=== PATIENT | female | born 1930 | race Caucasian/White ===

== ENCOUNTER 2016-11-28 13:48 | Inpatient (IN) | payer MEDICARE, OTHER ==
--- NOTE | ~2016-11-28 | CN ---
Consultation Report [facility] [address] [place]. [address] NAME: JOHN DOE : 31 STATUS : ADM IN PAT#: [id number] AGE: 86 ADM/REG DATE : 11/28/16 MR#: [id number] REPORT SERV DATE: 11/29/16 DICTATED BY: WANG AGUILAR DATE: 11/29/16 REPORT STATUS : Draft TRANSCRIBED BY: MODL DATE: 11/29/16 CONSULTATION DATE OF CONSULTATION: 11/29/2016 CHIEF COMPLAINT: Left hip pain. HISTORY OF PRESENT ILLNESS: Ms Doe is an 86-year-old female, who fell yesterday landing on her left side. She had immediate onset of severe left hip pain, was unable to ambulate after the fall. She presented to [facility] where x-rays showed a slightly valgus impacted left femoral neck fracture. Now, I have been asked to see her for evaluation and treatment. On questioning, she complains of only left hip pain. She denies any mental status changes or loss of consciousness at the time of the fall. She has had multiple recent falls. PHYSICAL EXAMINATION: GENERAL: She is awake and alert. She has no cervical tenderness. There is no evidence of bony injury to either upper extremity or right lower extremity. She has no pain with AP or lateral compression of her pelvis. With regard to her left lower extremity, there is no significant shortening or rotational deformity. She is unable to actively straight leg raise due to pain. She cannot tolerate passive left hip range of motion secondary to pain. There is moderate amount of trochanteric tenderness. She has no tenderness in the mid thigh distally. She has weakly present, but palpable pedal pulses and normal sciatic nerve function on the left. DIAGNOSTIC STUDIES: X-rays of her left hip show a valgus impacted left femoral neck fracture. IMPRESSION: Valgus impacted left femoral neck fracture. I have discussed treatment options with Ms Doe and her family including nonoperative treatment versus open reduction and internal fixation versus hemiarthroplasty, given that she has a stable pattern valgus impacted fracture. I have recommended open reduction and internal fixation. Risks of the procedure were discussed including infection, neurovascular damage, DVT, PE, blood loss, nonunion, malunion, loss of fixation, possible future need for removal of hardware, conversion to total hip arthroplasty, anesthetic complications, and others. She and her family have a good understanding, and have requested to proceed with surgical scheduling. VIRGIE/ROBYN Wang Consultation Report [facility] [address] [place]. [address] NAME: JOHN DOE : 31 STATUS : ADM IN PAT#: [id number] AGE: 86 ADM/REG DATE : 11/28/16 MR#: [id number] REPORT SERV DATE: 11/29/16 DICTATED BY: WANG AGUILAR DATE: 11/29/16 REPORT STATUS : Draft TRANSCRIBED BY: ROBYN DATE: 11/29/16 Malachi Aguilar / [id number] CC: Malachi Velazquez M.D.
--- NOTE | ~2016-11-28 | OP ---
Record Of Operation [facility] [address] [place]. [address] NAME: JOHN DOE : 31 STATUS : ADM IN PAT#: [id number] AGE: 86 ADM/REG DATE : 11/28/16 MR#: [id number] REPORT SERV DATE: 11/29/16 DICTATED BY: WANG AGUILAR DATE: 11/29/16 REPORT STATUS : Draft TRANSCRIBED BY: MODL DATE: 11/29/16 DATE OF PROCEDURE: 11/29/2016 PREOPERATIVE DIAGNOSIS: Valgus impacted left femoral neck fracture. POSTOPERATIVE DIAGNOSIS: Valgus impacted left femoral neck fracture. PROCEDURE: Open reduction and internal fixation of the left femoral neck fracture. SURGEON: Wang Aguilar M.D. BLADDER CHANGER: Curt Mejia. ANESTHESIA: Spinal with MAC. ESTIMATED BLOOD LOSS: 25 mL. COMPLICATIONS: None. DRAINS: None. IMPLANTS: Synthes 7.3 mm cannulated screws. INDICATIONS FOR SURGERY: Ms Doe is an 86-year-old female, who sustained the above- mentioned fracture in a fall. It was recommended she undergo open reduction and internal fixation. Risks of the procedure as detailed in the orthopedic consult, and operative consent were discussed prior to proceeding with her and her family. Her family fully understood and has requested to proceed. DESCRIPTION OF PROCEDURE: The patient was brought to the operating room, and after adequate induction of general anesthesia, positioned on the Chick fracture table in the supine position. All appropriate pressure points were padded. The left lower extremity was placed in gentle traction. The right hip was flexed and abducted to facilitate radiography. The maintenance of the valgus impacted position of the fracture was confirmed using biplanar fluoroscopy. The left hip was then prepped and draped in the usual sterile fashion. A time out was performed confirming the appropriate surgical side and site. A 2.5 cm incision was made over the lateral aspect of the femur. The subcutaneous tissues were incised sharply, and electrocautery was used, it was needed to maintain hemostasis. The fascia was divided in line with the incision. Three 3.2 mm guidewires for the cannulated screws were placed, one central inferior, one superior anterior, and one superior posterior in parallel fashion. Once appropriate guidewire placement had been confirmed, they were over measured and replaced with 7.3 mm cannulated screws. All three screws had excellent purchase. The screws were finally tightened and then the final fluoroscopic images were obtained and saved in both planes. The pins were removed. The wound was copiously irrigated with normal saline. The fascia was closed with interrupted #1 Vicryl suture in [id number] fashion. The subcutaneous tissues were approximated with interrupted 2-0 Vicryl suture. Steri-Strips Record Of Operation [address] [place]. [address] NAME: JOHN DOE : 31 STATUS : ADM IN PAT#: [id number] AGE: 86 ADM/REG DATE : 11/28/16 MR#: [id number] REPORT SERV DATE: 11/29/16 DICTATED BY: WANG AGUILAR DATE: 11/29/16 REPORT STATUS : Draft TRANSCRIBED BY: ROBYN DATE: 11/29/16 were applied. A sterile dressing was applied. The patient was awakened, and taken to the recovery room in stable condition. POSTOP PLAN: She is to be mobilized. Strict touchdown weightbearing only on her left lower extremity. She will be on Coumadin and mechanical DVT prophylaxis. VIRGIE/ROBYN Wang Aguilar M.D. / [id number] CC: Malachi Velazquez M.D.
--- NOTE | ~2016-11-28 | DS ---
Discharge Summary [facility] [address] [facility] [place]. [address] NAME: JHON DOE : 32 STATUS : DIS IN PAT#: [id number] AGE: 86 ADM/REG DATE : 11/28/16 MR#: [id number] REPORT SERV DATE: 12/03/16 DICTATED BY: JACKY BROWN DATE: 12/02/16 REPORT STATUS : Draft TRANSCRIBED BY: MODL DATE: 12/02/16 ADMISSION DATE: 11/28/2016 DISCHARGE DATE: 12/02/2016 Date of transfer to inpatient rehab is 12/02/2016 tentatively. CONDITION ON TRANSFER: Stable. DIAGNOSES ON DISCHARGE: Are the followin. Status post open reduction and internal fixation of left femoral neck fracture which the patient suffered after an accidental fall - the patient has been doing really well postoperatively. 2. Nonischemic cardiomyopathy with an ejection fraction of about 25%. This is extremely stable with current medications and the patient is euvolemic. 3. Hypertension - controlled with medications. 4. Sick sinus syndrome with a history of pacemaker placement. This is stable. 5. Hyperlipidemia - stable. 6. History of scleroderma - stable. 7. Mild dementia with episodes of confusion every now and then. This is also very stable at this time. BRIEF HOSPITAL COURSE: The patient is an 86-year-old female patient who was admitted with a left femoral neck fracture after an accidental fall. Orthopedic Surgery was consulted and the patient promptly underwent an open reduction and internal fixation of the left femoral fracture. Today is postoperative day #2 and the patient is doing really well after the procedure. She is alert, oriented, but does slip into episodes of confusion and keeps repeating things which is apparently baseline for this patient according to family. Other than that, she has done really well after surgery, and she is being discharged to inpatient rehab for further rehabilitation on the following medications that she mainly takes at home for the nonischemic cardiomyopathy, hypertension, GERD, hyperlipidemia, and scleroderma. In addition to her home medications which will include Dexilant 60 mg once a day, Coreg 3.125 mg p.o. b.i.d., Bumex 2 mg once a day, aspirin 325 mg once a day, Xanax 0.5 mg p.o. b.i.d. p.r.n., multivitamin tablet, calcium and vitamin D, Lipitor 20 mg once a day, and polyethylene glycol/propylene ophthalmic drops twice a day in both eyes, the patient is also being sent home on the following medications: 1. Percocet 5/325 one p.o. q.6 hours p.r.n. for pain. I have given a prescription for #15 of these. 2. The patient will also be on Coumadin per sliding scale to keep her INR between 2 and 3 as she has had a recent hip replacement. I have also advised that the patient's PT and INR be checked every other day while in the inpatient rehab. I have the following most relevant labs on this patient and these include: On 12/02/2016, her hemoglobin and hematocrit which are stable at 10.9 and 32.7. INR is 1.6 at this time. The patient is still subtherapeutic, but she should be able to get to a goal of 2 or above in the next few days with the Coumadin therapy. Discharge Summary [address] [address] NAME: JOHN DOE : 31 STATUS : DIS IN PAT#: [id number] AGE: 86 ADM/REG DATE : 11/28/16 MR#: [id number] REPORT SERV DATE: 12/03/16 DICTATED BY: JACKY BROWN DATE: 12/02/16 REPORT STATUS : Draft TRANSCRIBED BY: MODJustina DATE: 12/02/16 Her chest x-ray at this time showed a slight increase in pulmonary markings suggesting early failure soon postoperatively, but definitely lungs are clear and this is not clinically significant at this time. The patient also had a CBC on 11/30/2016 that shows a WBC count of 8.4, hemoglobin 11.3, hematocrit 35.9, and platelet count of 114. Her comprehensive metabolic profile shows sodium 147, potassium 3.4 which was replaced subsequently, BUN is 10, creatinine is 0.9. LFTs are completely normal. Hence, the patient is being discharged to inpatient rehab for further rehab after the left hip fracture either on 12/03/2016 or later depending on bed availability. I have spent about 40 minutes in coordinating discharge care of this patient including face- to-face encounter and summarizing this discharge. RRA/MODL Jacky Brown M.D. / [id number] CC: Malachi Velazquez M.D.
--- NOTE | ~2016-11-28 | HP ---
History And Physical [facility] [address] [place]. [address] NAME: JOHN DOE : 31 STATUS : ADM IN [facility]#: [id number] AGE: 86 ADM/REG DATE : 11/28/16 MR#: [id number] REPORT SERV DATE: 11/28/16 DICTATED BY: VERNON VERMA DATE: 11/28/16 REPORT STATUS : Draft TRANSCRIBED BY: MODL DATE: 11/28/16 DATE OF ADMISSION: 11/28/2016 CHIEF COMPLAINT: Left hip pain. HISTORY OF PRESENT ILLNESS: This is an 86-year-old lady with history of frequent falls, presenting with another fall. The patient went to the bathroom and left her walker outside. As the patient was coming out of the bathroom, the patient lost balance and fell on her left hip. The patient had an immediate onset of excruciating pain to her left hip and she was not able to get up. The patient was brought to the ER for further evaluation and care. In the ER, the patient was found to be hemodynamically stable. Initial lab evaluation was all very benign. X-ray revealed a left-sided femoral neck fracture. Internal Medicine consultation was requested for admission of the patient for further evaluation and care. In reviewing pertinent past medical history, the patient apparently has frequent falls at baseline. The patient actually had a fall that resulted in a subdural hematoma that required craniotomy about five years ago. The patient is supposed to use a walker at baseline, however, the patient is not very compliant with the usage. REVIEW OF SYSTEMS: The patient denies any fevers or chills. Also, 14-point review of systems reviewed and negative other than mentioned above. MEDICATIONS: The list is still pending at this time. ALLERGIES: 1. SULFA. 2. PENICILLIN. PAST MEDICAL HISTORY: 1. Nonischemic cardiomyopathy with ejection fraction of 25%. The patient follows with Dr. Garner and she apparently had an echocardiogram about two weeks ago that showed worsening of her baseline ejection fraction. It is unclear if the patient has a defibrillator, but the patient and family report that she does have a pacemaker. 2. Sick sinus syndrome, for which the patient has a pacemaker. I am not sure if the patient has pacemaker and defibrillator. 3. GERD. 4. Hypertension. 5. Hyperlipidemia. 6. Scleroderma. 7. History of subdural hematoma after a fall. 8. 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 PAST SURGICAL HISTORY: 1. Cholecystectomy. History And Physical [address] [address] NAME: JOHN DOE : 31 STATUS : ADM IN PAT#: [id number] AGE: 86 ADM/REG DATE : 11/28/16 MR#: [id number] REPORT SERV DATE: 11/28/16 DICTATED BY: VERNON VERMA DATE: 11/28/16 REPORT STATUS : Draft TRANSCRIBED BY: MODJustina DATE: 11/28/16 2. Hysterectomy. 3. Appendectomy. 4. Bladder tack. 5. Cardiac ablation. 6. Pacemaker implantation. 7. Craniotomy for a subdural hematoma. FAMILY HISTORY: CVA. SOCIAL HISTORY: The patient does not smoke, drink alcohol, or use any illicit drugs. The patient lives at home with her daughter. PHYSICAL EXAMINATION: VITAL SIGNS: Blood pressure 120/55, pulse 70, respiratory rate is 16, and saturating 99% on room air. GENERAL: The patient is alert and oriented x3 in no focal neurologic deficits. The patient is awake. She does appear to be in some distress due to pain, but otherwise, she is cooperative. NECK: No JVD. No lymphadenopathy. Normal thyroid. CHEST: No midline sternotomy scar and no tenderness to palpation. LUNGS: Clear to auscultation bilaterally with normal respiratory effort on room air. CARDIOVASCULAR: Regular rate and rhythm with no murmurs, rubs, or gallops, and PMI is nondisplaced. ABDOMEN: Soft and nontender with active bowel sounds and no organomegaly. EXTREMITIES: No edema. Normal distal pulses. No calf tenderness. SKIN: Clean, dry, warm, and intact. LABORATORY DATA: Sodium is 147, potassium 3.4, chloride 107, BUN 10, creatinine 0.94, glucose 127, and calcium 8.9. LFTs are within normal limits. White blood cell count is 11.1, hemoglobin 13.8, and platelets 182. Urinalysis was negative for UTI. X-ray of the pelvis and left hip revealed an impacted left femoral neck fracture. ASSESSMENT: This is an 86-year-old lady with history of frequent falls, presenting with a left femoral neck fracture. 1. Left femoral neck fracture after a mechanical fall. 2. Frequent falls at baseline. 3. Baseline nonischemic cardiomyopathy with ejection fraction less than 25%, appears to be euvolemic today. 4. Hypertension. 5. Sick sinus syndrome with a pacemaker. 6. Gastroesophageal reflux disease. 7. Hyperlipidemia. 8. Scleroderma. PLAN: My plan is to admit the patient under telemetry monitoring. The patient will be put to a bedrest. Orthopedic Surgery will be consulted and I will keep her n.p.o. after midnight. In the meantime, the patient will be given IV fluid resuscitation and I will History And Physical [address] [address] NAME: JOHN DOE : 31 STATUS : ADM IN [facility]#: [id number] AGE: 86 ADM/REG DATE : 11/28/16 MR#: [id number] REPORT SERV DATE: 11/28/16 DICTATED BY: VERNON VERMA DATE: 11/28/16 REPORT STATUS : Draft TRANSCRIBED BY: ROBYN DATE: 11/28/16 provide supportive care with pain control. The patient does have a significant cardiac history of nonischemic cardiomyopathy, which puts her at a higher cardiovascular risk perioperatively; however, she does not have any absolute contraindication to surgical intervention. For the rest of stable past medical conditions, including nonischemic cardiomyopathy, hypertension, sick sinus syndrome, GERD, hyperlipidemia, et al, I will continue home medications when the home medication list becomes available. Standard DVT prophylaxis. The patient is full code at this time. YSJax/ROBYN Vernon Verma MD / [id number] CC: Aracelis Brown M.D. Kostas Mantilla M.D. Wang Garner M.D., Ph.D, F.A.C.C.
[~2016-11-28 13:48] MED LIST: ACIDOPHILU1 PO; ANASPAZ0.125 MG PO; ASAB PO; CALTRA600D PO; CELEXA10 PO; COREG6 PO; CULTURELLE OTC PO; DCN100 PO; FLOVENT DISK50 MCG INH; KAPIDEX60 MG PO; L20 PO; METHOC750B PO; MICARDIS HC1 PO; MULTIPLE VIT PO; MULTIVITAMI1 PO; NEXIUM40 PO; NITROSTAT0.4 MG SL; NTG150 SL; PLAVIX PO; PREV30 PO; PRILO PO; PRILOSEC40 MG PO; PROBIOTIC; PROBIOTIC OTC PO; VITAMIN E PO; X25 PO; X5 PO; XANAX PO; Z-PAK PO; ZOL100 PO; ZOL50 PO; [UNRECOGNIZED DRUG - OTHER] PO
[2016-11-28 15:02] LABS: BASOPHILS 0.1 %; BASOPHILS ABSOLUTE 0.01 10/3/uL (0.0-0.16); EOSINOPHILS 2.3 %; EOSINOPHILS ABSOLUTE 0.26 10/3/uL (0.0-0.53); IMMATURE GRANULOCYTES 0.4 %; IMMATURE GRANULOCYTES ABSOLUTE 0.05 10/3/uL (0.0-0.11); LYMPHOCYTES 17.5 %; LYMPHOCYTES ABSOLUTE 1.95 10/3/uL (0.67-4.30); MEAN CORPUS HGB CONC 32.5 g/dL (32.0-36.0); MEAN PLATELET VOLUME 12.2 fL (9.2-13.0); MONOCYTES 5.5 %; MONOCYTES ABSOLUTE 0.61 10/3/uL (0.21-1.20); NEUTROPHILS 74.2 %; NEUTROPHILS ABSOLUTE 8.26 10/3/uL (2.02-8.40); RBC DISTRIBUTION WIDTH 14.8 % (12.0-16.0); RED CELL COUNT 4.83 10/6/uL (4.0-5.6)
[2016-11-28 15:05] LABS: ER CBC TAT 0 Hrs 11 Mins; HEMATOCRIT 42.4 % (36.0-48.0); HEMOGLOBIN 13.8 g/dL (12.0-16.0); MANUAL DIFF NO %; MEAN CORPUSCULAR HEMOGLOB 28.6 pg (26.0-34.0); MEAN CORPUSCULAR VOLUME 87.8 fL (80-100); PLATELET COUNT 182 10/3/uL (150-400); WHITE BLOOD CELLS 11.1 10/3/uL (4.5-10.5)
[2016-11-28 15:06] LABS: ASCORBIC ACID (UR NOT ORDER) 40 (NEG); BILIRUBIN, URINE NEGATIVE (NEG); ER URINALYSIS TAT 0 Hrs 12 Mins; KETONE, URINE NEGATIVE (NEG); LEUKOCYTE ESTERASE(NOT OR NEG (NEG); NITRITE (URINE) NEG (NEG); WBC (NOT ORDERED) (RFLEX) 1 (0-5)
[2016-11-28 15:18] LABS: ALBUMIN 3.5 G/DL (3.5-5.0); CALCIUM, SERUM 8.9 MG/DL (8.5-10.4); CHLORIDE, SERUM 107 MMOL/L (96-112); CO2 (CARBON DIOXIDE) 30 MMOL/L (24-34); CREATININE 0.94 MG/DL (0.55-1.02); GFR AFRICAN AMERICAN 64 ML/MIN (>=60); GFR NON AFRICAN AMERICAN 55 ML/MIN (>=60); GLOBULIN 3.5 G/DL (2.5-4.1); GLUCOSE, SERUM 127 MG/DL (60-99); POTASSIUM, SERUM 3.4 MMOL/L (3.5-5.3); SGOT(AST) 36 U/L (5-40); SGPT(ALT) 36 U/L (5-65); TOTAL BILIRUBIN 1.2 MG/DL (0-1.2)
[2016-11-28 15:19] LABS: ALKALINE PHOSPHATASE 93 U/L (45-117); BUN (BLOOD UREA NITROGEN) 10 MG/DL (6-23); SODIUM, SERUM 147 MMOL/L (135-148)
[2016-11-28] MEDS ORDERED: KAPIDEX60 MG PO (16:26)
[2016-11-28] MEDS ORDERED: COREG3 PO (16:26)
[2016-11-28] MEDS ORDERED: BUM2 PO (16:27)
[2016-11-28] MEDS ORDERED: ASABAYER PO (16:27)
[2016-11-28] MEDS ORDERED: X5 PO (16:28)
[2016-11-28] MEDS ORDERED: MULTIVITAMI1 PO (16:28)
[2016-11-28] MEDS ORDERED: ULTRAM50 PO (16:29)
[2016-11-28] MEDS ORDERED: CALTRA600D PO (16:29)
[2016-11-28] MEDS ORDERED: SYSTANE OPH (16:29)
[2016-11-28] MEDS ORDERED: LIPITOR20 PO (16:30)
[2016-11-28 22:12] LABS: INTERNATIONAL NORMAL RATI 1.2 UNITS (-); PARTIAL THROMBO TIME 30.1 SEC (22.5-37.2); PROTIME (NOT ORD) 15.2 SEC (12.0-14.5)
[2016-11-29 07:08] LABS: INTERNATIONAL NORMAL RATI 1.2 UNITS (-); PARTIAL THROMBO TIME 33.4 SEC (22.5-37.2); PROTIME (NOT ORD) 15.5 SEC (12.0-14.5)
[2016-11-30 06:35] LABS: BASOPHILS 0.2 %; BASOPHILS ABSOLUTE 0.02 10/3/uL (0.0-0.16); EOSINOPHILS 3.6 %; HEMOGLOBIN 11.3 g/dL (12.0-16.0); IMMATURE GRANULOCYTES 0.4 %; IMMATURE GRANULOCYTES ABSOLUTE 0.03 10/3/uL (0.0-0.11); LYMPHOCYTES 13.4 %; LYMPHOCYTES ABSOLUTE 1.12 10/3/uL (0.67-4.30); MEAN CORPUS HGB CONC 31.5 g/dL (32.0-36.0); MEAN CORPUSCULAR HEMOGLOB 28.1 pg (26.0-34.0); MEAN CORPUSCULAR VOLUME 89.3 fL (80-100); MEAN PLATELET VOLUME 12.4 fL (9.2-13.0); MONOCYTES 5.1 %; MONOCYTES ABSOLUTE 0.43 10/3/uL (0.21-1.20); NEUTROPHILS 77.3 %; NEUTROPHILS ABSOLUTE 6.45 10/3/uL (2.02-8.40); RBC DISTRIBUTION WIDTH 15.4 % (12.0-16.0); RED CELL COUNT 4.02 10/6/uL (4.0-5.6); WHITE BLOOD CELLS 8.4 10/3/uL (4.5-10.5)
[2016-11-30 06:37] LABS: HEMATOCRIT 35.9 % (36.0-48.0); PLATELET COUNT 114 10/3/uL (150-400)
[2016-11-30 06:38] LABS: MANUAL DIFF NO %
[2016-11-30 06:41] LABS: BUN (BLOOD UREA NITROGEN) 10 MG/DL (6-23); CALCIUM, SERUM 8.2 MG/DL (8.5-10.4); CHLORIDE, SERUM 107 MMOL/L (96-112); CO2 (CARBON DIOXIDE) 26 MMOL/L (24-34); CREATININE 0.75 MG/DL (0.55-1.02); GFR AFRICAN AMERICAN 84 ML/MIN (>=60); GFR NON AFRICAN AMERICAN 73 ML/MIN (>=60); GLUCOSE, SERUM 151 MG/DL (60-99); INTERNATIONAL NORMAL RATI 1.3 UNITS (-); POTASSIUM, SERUM 3.3 MMOL/L (3.5-5.3); PROTIME (NOT ORD) 15.8 SEC (12.0-14.5); SODIUM, SERUM 143 MMOL/L (135-148)
[2016-12-01 07:04] LABS: HEMOGLOBIN 10.7 g/dL (12.0-16.0)
[2016-12-01 07:07] LABS: INTERNATIONAL NORMAL RATI 1.6 UNITS (-); PROTIME (NOT ORD) 18.5 SEC (12.0-14.5)
[2016-12-01 07:11] LABS: HEMATOCRIT 32.2 % (36.0-48.0)
[2016-12-02 06:24] LABS: HEMATOCRIT 32.7 % (36.0-48.0); HEMOGLOBIN 10.9 g/dL (12.0-16.0)
[2016-12-02 06:33] LABS: INTERNATIONAL NORMAL RATI 1.6 UNITS (-); PROTIME (NOT ORD) 18.6 SEC (12.0-14.5)
[2016-12-03 06:02] LABS: INTERNATIONAL NORMAL RATI 1.8 UNITS (-); PROTIME (NOT ORD) 20.5 SEC (12.0-14.5)
== END 2016-12-03 09:57 | DRG 481 ==
LOC: ER 13:48 → 1SO 17:49
PROVIDERS: Internal Medicine; Physician Assistant; Specialist
PROC: 0QS704Z Reposition Left Upper Femur with Internal Fixation Device, Open Approach (ICD-10-PCS; principal; 2016-11-29 08:15)
DX: S72.002A Fracture of unspecified part of neck of left femur, initial encounter for closed fracture (principal); I42.8 Other cardiomyopathies; F03.90 Unspecified dementia, unspecified severity, without behavioral disturbance, psychotic disturbance, mood disturbance, and anxiety; I10 Essential (primary) hypertension; I49.5 Sick sinus syndrome; K21.9 Gastro-esophageal reflux disease without esophagitis; E78.5 Hyperlipidemia, unspecified; W18.30XA Fall on same level, unspecified, initial encounter; M34.9 Systemic sclerosis, unspecified; R29.6 Repeated falls; Z95.0 Presence of cardiac pacemaker; Z86.73 Personal history of transient ischemic attack (TIA), and cerebral infarction without residual deficits; Z91.81 History of falling; Z88.0 Allergy status to penicillin; Z88.2 Allergy status to sulfonamides
CPT/HCPCS: 71010; 72170; 73552-LT; 76000; 80048; 80053; 81001; 85014; 85018; 85025; 85610; 85730; 96374; 97110-GP; 97162-GP; 97166-GO; 97530-GP; 99285; A9270-GY; C1713; C1769; G8978-CL-GP; G8979-CL-GP; J0690; J1170; J1885; J2250; J2370; J3010